=== PATIENT | female | born 1960 | race African-American/Black ===

== ENCOUNTER 2018-01-25 17:22 | Inpatient (IN) | payer OTHER ==
[~2018-01-25] VITALS: Ht 162.6 cm; Wt 93.9 kg
--- NOTE | ~2018-01-25 | 2DMMODE ---
[facility] [address] [place] [address] 2 D/M-MODE ECHOCARDIOGRAM Name: RAÚL SHEIKH ANGEL Room #: 431-P ADM IN M.R.#: [id number] Admission: 01/25/18 Attend Phys: Hari Mason MD Discharge: Date of : 58 Date of Service: 01/26/18 0955 Report #: [id number] THIS REPORT FOR: //name// APPROVED REPORT Study performed: 01/26/2018 08:12:42 EXAM: Comprehensive 2D, Doppler, and color-flow Echocardiogram Patient Location: Echo lab Room #: 431 Status: routine BSA: 1.99 HR: 62 bpm BP: 100/47 mmHg Other Information Study Quality: Adequate Indications Dizziness and Vertigo Syncope 2D Dimensions RVDd: 35.45 mm LVEF(%): 64.85 (>50%) IVSd: 10.52 (7-11mm) LVOT Diam: 19.41 (18-24mm) LVDd: 47.71 mm PWd: 9.51 (7-11mm) Ascending Ao: 25.60 (22-36mm) LVDs: 30.78 (25-40mm) Aortic Root: 26.30 mm De Santiago's LVEF: 64.85 % Volumes Left Atrial Volume (Systole) Single Plane 4CH: 53.34 mL Single Plane 2CH: 44.59 mL LA ESV Index: 26.00 mL/m2 Aortic Valve AoV Peak Sánchez.: 1.35 m/s AO Peak Gr.: 7.24 mmHg LVOT Max P.56 mmHg LVOT Max V: 1.07 m/s NITA Vmax: 2.35 cm2 Mitral Valve E/A Ratio: 1.9 MV Decel. Time: 179.23 ms [facility] [place] [place] [address] 2 D/M-MODE ECHOCARDIOGRAM Name: RAÚL SHEIKH [facility] Room #: 431-P [facility] IN M.R.#: [id number] Admission: 01/25/18 Attend Phys: Hari Mason MD Discharge: Date of : 58 Date of Service: 01/26/18 0955 Report #: [id number] MV E Max Sánchez.: 1.12 m/s MV A Sánchez.: 0.59 m/s MV PHT: 51.98 ms IVRT: 92.27 ms Pulmonary Valve PV Peak Sánchez.: 1.29 m/s PV Peak Gr.: 6.70 mmHg Pulmonary Vein P Vein S: 0.60 m/s P Vein A: 0.29 m/s P Vein D: 0.47 m/s P Vein A Dur.: 110.7 msec P Vein S/D Ratio: 1.28 Tricuspid Valve TR Peak Sánchez.: 2.36 m/s RAP Estimate: 5.00 mmHg TR Peak Gr.: 22.28 mmHg PA Pressure: 27.00 mmHg Left Ventricle The left ventricle is normal size. There is normal LV segmental wall motion. There is normal left ventricular wall thickness. The left ventricular systolic function is normal. LVEF is 55-60%. The left ventricular diastolic function is normal. Right Ventricle The right ventricle is normal size. The right ventricular systolic function is normal. Atria The left atrium size is normal. The right atrium size is normal. Aortic Valve The aortic valve is normal in structure. No aortic regurgitation is present. There is no aortic valvular stenosis. Mitral Valve The mitral valve is normal in structure. There is no mitral valve regurgitation noted. No evidence of mitral valve stenosis. Tricuspid Valve The tricuspid valve is normal in structure. Mild tricuspid regurgitation. Estimated PAP is 25-30mmHg. Pulmonic Valve The pulmonary valve is normal in structure. Mild pulmonic [facility] [address] [place] [address] 2 D/M-MODE ECHOCARDIOGRAM Name: RAÚL SHEIKH [facility] Room #: 431-P [facility] IN [facility]#: [id number] Admission: 01/25/18 Attend Phys: Hari Mason MD Discharge: Date of : 58 Date of Service: 01/26/18 0955 Report #: [id number] regurgitation. Great Vessels The aortic root is normal in size. IVC is normal in size and collapses >50% with inspiration. Pericardium There is no pericardial effusion. <Conclusion> The left ventricular systolic function is normal. There is normal LV segmental wall motion. LVEF is 55-60%. Normal diastolic function The aortic valve is normal in structure. No aortic regurgitation or stenosis. The mitral valve is normal in structure. No mitral valve regurgitation Mild tricuspid regurgitation. Estimated pulmonary artery pressure of 25-30mmHg. There is no pericardial effusion. <ELECTRONICALLY SIGNED> By: Lawson Andrade MD, FACC 01/26/18954 4 4 Lawson Andrade MD, FACC /INF
--- NOTE | ~2018-01-25 | EKG ---
[address] [place] [address] ELECTROCARDIOGRAM REPORT Name: RAÚL SHEIKH Room #: 431-P ADM IN M.R.#: [id number] Admission: 01/25/18 Attend Phys: Beni Humphries MD Discharge: Date of : 58 Report #: [id number] THIS REPORT FOR: //name// [facility] ED Test Date: 2018-01-25 Test Time: 17:33:15 Pat Name: RAÚL SHEIKH Department: Room: Gender: F Administrative Assistant Receptionist: CINDY : 1960 Requested By: Estella Madison Order Number: [id number] MD: Olayinka Bethea Measurements Intervals [place] Rate: 57 P: 39 ND: 173 QRS: -11 QRSD: 94 T: 3 QT: 425 QTc: 414 Interpretive Statements Sinus rhythm Compared to ECG 06/28/2013 15:32:57 No significant changes Electronically Signed On 01-25-2018 20:41:06 CDT by Olayinka Bethea [email or web address] <ELECTRONICALLY SIGNED> By: Olayinka Bethea MD 01/25/182040 173 173 Olayinka Bethea MD /PANCHITO
[~2018-01-25 17:22] MED LIST: ACETAMINOPHEN325 M1 PO; BUTALB-ACETAMI1 EACH PO; CELEXA 20 MG TA20 M1 PO; IBUPROFEN 600600 M1 PO; LAMICTAL XR50 MG PO; LISINOPRIL-HCT1 EACH PO; MAGNESIUM400 MG PO; MECLIZINE HCL25 M1 PO; MINIPRIN81 MG PO; MULTIVITAMINS PO; NEURONTIN 300300 M1 PO; NORVASC 5 MG TAB5 MG PO; PHENERGAN 25 MG25 M1 PO; PLAVIX 75 MG TA75 MG PO; TRAMADOL 50 MG50 MG PO; VITAMIN B-12250 MCG; VITAMIN B-650 M1; WELLBUTRIN 75 M75 M1 PO; ZOCOR40 MG PO; ZOFRAN4 MG PO
[2018-01-25 17:23] VITALS: BP 142/84
[2018-01-25 18:16] LABS: ABSOLUTE NEUTROPHILS 4.6 thou/uL (1.4-8.2); BASOPHILS 0.9 % (0.0-2.0); EOSINOPHILS 1.2 % (0.0-3.0); HEMATOCRIT 36.9 % (37.0-47.0); HEMOGLOBIN 12.1 gm/dL (12.0-15.0); LYMPHOCYTES 28.5 % (24.0-44.0); MCH 30.1 pg (26.0-34.0); MCHC 32.9 g/dL (28.0-37.0); MCV 91.7 fL (80.0-100.0); MONOCYTES 6.4 % (1.0-8.0); PLATELET COUNT 299 thou/uL (150-400); RBC 4.03 mil/uL (4.20-5.00); RDW 14.2 % (10.5-14.5); WBC 7.4 thou/uL (4.0-11.0)
[2018-01-25 18:27] LABS: ANION GAP 4 mmol/L (7-16); BUN 21 mg/dL (7-18); CALCIUM 9.2 mg/dL (8.5-10.1); CHLORIDE 105 mmol/L (98-107); CO2 29 mmol/L (21-32); CREATININE 1.3 mg/dL (0.6-1.0); GLUCOSE 107 mg/dL (74-106); POTASSIUM 3.5 mmol/L (3.5-5.1); SODIUM 138 mmol/L (136-145)
[2018-01-25 18:35] LABS: TROPONIN-I < 0.04 ng/mL (<0.06)
[2018-01-25 20:00] VITALS: BP 121/58
[2018-01-25 20:23] VITALS: BP 137/62
[2018-01-26 04:00] VITALS: BP 100/47
[2018-01-26 05:44] LABS: CALCIUM 8.5 mg/dL (8.5-10.1); POTASSIUM 3.9 mmol/L (3.5-5.1)
[2018-01-26] MEDS ORDERED: LISINOPRIL-HCT1 EACH PO (12:12)
[2018-01-26 13:35] VITALS: BP 100/47
== END 2018-01-26 15:41 | disposition home or self-care (01) | DRG 684 ==
LOC: ER 17:22 → EROBS 20:09 → 4E 20:09 → ENTRNSPT 01-26 15:25 → EDTRNSPTSTS 01-26 15:26 → 4E 01-26 15:41
PROVIDERS: Emergency Medicine; Nurse Practitioner Family
DX: N17.9 Acute kidney failure, unspecified (principal); E11.9 Type 2 diabetes mellitus without complications; E86.0 Dehydration; E78.5 Hyperlipidemia, unspecified; I10 Essential (primary) hypertension; F32.9 Major depressive disorder, single episode, unspecified; Z87.891 Personal history of nicotine dependence; Z79.82 Long term (current) use of aspirin; Z79.899 Other long term (current) drug therapy; Z79.4 Long term (current) use of insulin; Z86.73 Personal history of transient ischemic attack (TIA), and cerebral infarction without residual deficits; Z90.710 Acquired absence of both cervix and uterus
CPT/HCPCS: 10183